=== PATIENT | female | born 1970 | race Asian ===

== ENCOUNTER 2021-12-24 14:53 | Emergency (ER) | payer BC ==
[~2021-12-24] VITALS: Ht 157.5 cm; Wt 50.8 kg
--- NOTE | 2021-12-24 14:53 | NUR ---
PT BIBRA 89 C/O ALLERGIC REACTION NOTED LIP SWELLING AND SOB. PT IS AAOX4, NOT IN RESPIRATORY DISTRESS, HOOKED TO V/S MONITOR, KEPT RESTED AND COMFORTABLE. WILL CONTINUE TO MONITOR.
--- NOTE | 2021-12-24 15:05 | NUR ---
AT BEDSIDE FOR EVAL.
[2021-12-24] MEDS ORDERED: diphenhydrAMINE HCL 50 MG CAPSULE ONE (15:10)
[2021-12-24] MEDS ORDERED: methylPREDNISolone SOD SUCC 125 MG/2ML VIAL ONE (15:10)
[2021-12-24] MEDS ORDERED: FAMOTIDINE/PF INJ 20 MG/2 ML VIAL IV ONE ×2 (15:11→15:30)
[2021-12-24] MEDS ORDERED: methylPREDNISolone SOD SUCC 125 MG/2ML VIAL IV ONE (15:30)
[2021-12-24] MEDS ORDERED: diphenhydrAMINE HCL 50 MG CAPSULE PO ONE (15:30)
[2021-12-24] MEDS ORDERED: PRED50TA PO (16:00)
[2021-12-24] MEDS ORDERED: CETI-90 PO (16:00)
[2021-12-24 16:20] VITALS: BP 133/78
== END 2021-12-24 16:33 | disposition home or self-care (01) ==
LOC: ER 14:55
DX: L50.9 Urticaria, unspecified (principal); Z88.8 Allergy status to other drugs, medicaments and biological substances
CPT/HCPCS: 93005; 96374; 96375; 99284; J2930; J3490; Q0163